=== PATIENT | female | born 1930 | race Caucasian/White ===

== ENCOUNTER 2019-01-15 00:16 | Inpatient (IN) | payer MEDICARE, MEDICAID ==
[~2019-01-15] VITALS: Ht 157.5 cm; Wt 62.6 kg
[2019-01-15] MEDS ORDERED: ASPI81TA31 PO (00:26)
[2019-01-15] MEDS ORDERED: ATOR10TA PO (00:27)
[2019-01-15] MEDS ORDERED: BENZ0.5T43 PO (00:28)
[2019-01-15] MEDS ORDERED: DOCU-141 PO (00:28)
[2019-01-15] MEDS ORDERED: BISA10SU61 RC (00:29)
[2019-01-15] MEDS ORDERED: SITA50TA PO ×2 (00:30→00:32)
[2019-01-15] MEDS ORDERED: LISI40TA4 PO (00:32)
[2019-01-15] MEDS ORDERED: MELA3TAB PO (00:33)
[2019-01-15] MEDS ORDERED: MEMA5TAB15 PO (00:34)
[2019-01-15] MEDS ORDERED: METO25TA6 PO (00:34)
[2019-01-15] MEDS ORDERED: QUET25TA PO (00:35)
[2019-01-15] MEDS ORDERED: QUET50TA PO (00:36)
[2019-01-15] MEDS ORDERED: TRAM50TA2 PO (00:37)
[2019-01-15] MEDS ORDERED: ACET-2154 PO (00:37)
[2019-01-15] MEDS ORDERED: INSU100I19 SQ (00:39)
[2019-01-15] MEDS ORDERED: HYDR-3326 PO (00:41)
[2019-01-15] MEDS ORDERED: NITR0.4T48 SL (00:42)
--- NOTE | 2019-01-15 00:56 | NUR ---
MRSA swab complete and sent to lab. Xrat at bedside. Belongings list complete
[2019-01-15 01:04] LABS: BASOPHILS % (AUTO) 0.4 % (0.0-2.0); EOSINOPHILS # (AUTO) 0.1 K/uL (0.0-0.7); EOSINOPHILS % (AUTO) 1.4 % (0.0-7.0); HEMATOCRIT 35.1 % (31.2-41.9); HEMOGLOBIN 11.5 g/dL (10.9-14.3); LYMPHOCYTES # (AUTO) 2.2 K/uL (20.0-40.0); LYMPHOCYTES % (AUTO) 34.3 % (20.5-51.5); MEAN CORPUSCULAR HGB CONC 33 g/dL (32.3-35.6); MEAN CORPUSCULAR VOLUME 91.9 fL (75.5-95.3); MONOCYTES # (AUTO) 0.4 K/uL (2.0-10.0); MONOCYTES % (AUTO) 6.6 % (0.0-11.0); NEUTROPHILS # (AUTO) 3.7 K/uL (1.8-8.9); NEUTROPHILS % (AUTO) 57.3 % (38.5-71.5); PLATELET COUNT (AUTO) 198 K/uL (179-408); RED BLOOD CELL COUNT(AUTO) 3.81 MIL/uL (3.63-4.92); WHITE BLOOD COUNT (AUTO) 6.5 K/uL (3.8-11.8)
[2019-01-15 01:06] LABS: CARBON DIOXIDE 27 mmol/L (21-32); CHLORIDE 99 mmol/L (98-107); POTASSIUM 4.5 mmol/L (3.5-5.1); UREA NITROGEN, BLOOD 25 mg/dL (7-18)
[2019-01-15 01:08] LABS: GLUCOSE 371 mg/dL (74-106)
[2019-01-15 01:11] LABS: ALANINE AMINOTRANSFERASE 15 U/L (14-59); ALKALINE PHOSPHATASE 154 U/L (50-136); ASPARTATE AMINOTRANSFERASE 10 U/L (15-37); BILIRUBIN,DIRECT 0.1 mg/dL (0.0-0.2); BILIRUBIN,TOTAL 0.2 mg/dL (0.2-1.0); TOTAL PROTEIN, SERUM 7.8 g/dL (6.4-8.2)
[2019-01-15 01:12] LABS: ACETAMINOPHEN < 2.0 ug/mL (10-30)
[2019-01-15] MEDS ORDERED: INSULIN REGULAR, HUMAN 300 UNIT/3 ML VIAL SQ ONE (01:15)
[2019-01-15] MEDS ORDERED: INSULIN REGULAR, HUMAN 300 UNIT/3 ML VIAL ONE (01:15)
[2019-01-15 01:18] LABS: ETHANOL < 3 MG/DL (0-0)
--- NOTE | 2019-01-15 01:37 | NUR ---
Pt. admitted to [facility] , under care of Dr. Gardner/Blane Marcus DAIRY EQUIPMENT INSTALLER. On 515 hold for GD. Report given to Jamel ALEXANDER in [facility] Belongs List completed
[2019-01-15 01:40] LABS: *BILIRUBIN,URIN NEGATIVE (NEGATIVE); *BLOOD, URINE NEGATIVE (NEGATIVE); *CLARITY,URINE CLEAR (CLEAR); *COLOR,URINE YELLOW (YELLOW); *KETONES,URINE NEGATIVE (NEGATIVE); *UROBILINOGEN,URINE 0.2 E.U./dl (NORMAL); LEUKOCYTE ESTERASE ,URINE NEGATIVE (NEGATIVE); NITRITE, URINE NEGATIVE (NEGATIVE); PH,URINE 5.5 (5.0-8.0)
[2019-01-15 01:46] LABS: UGLUCOSE 2+ (NEGATIVE)
[2019-01-15 01:49] LABS: RBC,URINE 0-3 /HPF (0-3)
[2019-01-15 01:50] LABS: BACTERIA,URINE FEW /HPF (NONE SEEN); SQUAMOUS EPITHELIAL CELL,UR FEW /HPF (NONE SEEN); WBC,URINE 20-50 /HPF (0-3); YEAST,URINE MODERATE /HPF (NONE SEEN)
[2019-01-15 01:53] LABS: *AMPHETAMINE, URINE NEGATIVE (NEGATIVE); *BARBITURATE, URINE NEGATIVE (NEGATIVE); *CANNABINOID, URINE NEGATIVE (NEGATIVE); *COCCAINE, URINE NEGATIVE (NEGATIVE); *OPIATE, URINE NEGATIVE (NEGATIVE); *PHENCYCLIDINE SCREEN,URINE NEGATIVE (NEGATIVE)
[2019-01-15] MEDS ORDERED: QUETIAPINE FUMARATE 25 MG TABLET PO PRN (02:45)
[2019-01-15] MEDS ORDERED: ZOLPIDEM 5 MG TABLET PO PRN (02:45)
[2019-01-15] MEDS ORDERED: MAG HYDROX/AL HYDROX/SIMETH 30 ML LIQUID UDC PO PRN (02:45)
[2019-01-15] MEDS ORDERED: MAGNESIUM HYDROXIDE 30 ML LIQUID UDC PO PRN (02:45)
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
[2019-01-15] MEDS ORDERED: NITROGLYCERIN 0.4 MG/TAB BOTTLE SL PRN (05:30)
--- NOTE | 2019-01-15 06:00 | NUR ---
slept 2.45 hours. continues to sleep, no distress noted.
[2019-01-15 07:30] VITALS: BP 112/42
[2019-01-15] MEDS: ASPIRIN 81 MG TAB.CHEW PO SCH (08:49)
[2019-01-15] MEDS: DOCUSATE SODIUM 100 MG CAPSULE PO SCH ×2 (08:49→16:22)
[2019-01-15] MEDS: BENZTROPINE MESYLATE 0.5 MG TABLET PO SCH ×2 (08:49→16:22)
[2019-01-15] MEDS: LISINOPRIL 20 MG TABLET PO SCH (08:51)
[2019-01-15] MEDS ORDERED: Medication Not On Formulary EA (Sitagliptin Phosphate (Januvia) 25 MG) PO SCH (09:00)
[2019-01-15] MEDS ORDERED: INSULIN DETEMIR 300 UNIT/3 ML CARTRIDGE SQ SCH (09:00)
[2019-01-15] MEDS ORDERED: HYDROCODONE/APAP 5-325MG TABLET PO PRN (09:00)
[2019-01-15] MEDS ORDERED: METOPROLOL TARTRATE 25 MG TABLET PO SCH (09:00)
[2019-01-15] MEDS: LINAGLIPTIN 5 MG TABLET PO SCH (11:24)
[2019-01-15] MEDS: INSULIN GLARGINE,HUM 300 UNITS/3 ML CARTRIDGE SQ SCH ×2 (11:30→21:12)
[2019-01-15] MEDS ORDERED: DEXTROSE 50% 50 ML DISP.SYRIN IV PRN (13:00)
--- NOTE | 2019-01-15 15:08 | NUR ---
Gps/Health Analyst- Not initiating to feed self, encouraged to feed self after set up. medication compliant,fluids offered and encouraged, safety reviewed and emphasized.Complaint with routine medications , min. prompting denies dizziness Monitor for s/s of hypo/hyperglycemia. Napping on and off this pm .
[2019-01-15 16:00] VITALS: BP 100/53
[2019-01-15] MEDS: BLOOD SUGAR DIAGNOSTIC 1 EACH STRIP VI SCH ×2 (16:22→20:52)
[2019-01-15] MEDS: ATORVASTATIN 10 MG TABLET PO SCH (16:22)
[2019-01-15] MEDS: OXCARBAZEPINE 150 MG TABLET PO SCH (16:23)
[2019-01-15] MEDS: FLUCONAZOLE 100 MG TABLET PO SCH (16:26)
[2019-01-15] MEDS: INSULIN REGULAR, HUMAN 300 UNIT/3 ML VIAL SQ PRN ×2 (16:31→21:15)
[2019-01-15 20:26] VITALS: BP 111/51
[2019-01-15] MEDS: QUETIAPINE FUMARATE 25 MG TABLET PO SCH (20:53)
[2019-01-15] MEDS ORDERED: MEMANTINE HCL 5 MG TABLET PO SCH (21:00)
[2019-01-15] MEDS: METOPROLOL TARTRATE 25 MG TABLET PO SCH (21:09)
--- NOTE | 2019-01-15 22:30 | NUR ---
received to care, lying in bed, pleasant and calm,upon approach. compliant with medications, snack, and staff direction. as of 2229 she remains asleep. no distress noted. will continue to monitor closely.
--- NOTE | 2019-01-16 06:30 | NUR ---
slept 6.0 hours. asisted with am care, and shower. no distress noted.
[2019-01-16] MEDS: BLOOD SUGAR DIAGNOSTIC 1 EACH STRIP VI SCH ×4 (06:51→20:53)
[2019-01-16 07:30] VITALS: BP 114/48
[2019-01-16] MEDS: QUETIAPINE FUMARATE 25 MG TABLET PO SCH ×2 (08:27→20:53)
[2019-01-16] MEDS: DOCUSATE SODIUM 100 MG CAPSULE PO SCH ×2 (08:28→16:28)
[2019-01-16] MEDS: OXCARBAZEPINE 150 MG TABLET PO SCH ×2 (08:28→16:28)
[2019-01-16] MEDS: LINAGLIPTIN 5 MG TABLET PO SCH (08:28)
[2019-01-16] MEDS: ASPIRIN 81 MG TAB.CHEW PO SCH (08:29)
[2019-01-16] MEDS: FLUCONAZOLE 100 MG TABLET PO SCH (08:29)
[2019-01-16] MEDS: BENZTROPINE MESYLATE 0.5 MG TABLET PO SCH ×2 (08:29→16:28)
[2019-01-16] MEDS: INSULIN GLARGINE,HUM 300 UNITS/3 ML CARTRIDGE SQ SCH ×2 (08:32→20:57)
[2019-01-16] MEDS: LISINOPRIL 20 MG TABLET PO SCH (08:34)
[2019-01-16] MEDS: METOPROLOL TARTRATE 25 MG TABLET PO SCH ×2 (08:34→20:53)
[2019-01-16] MEDS: INSULIN REGULAR, HUMAN 300 UNIT/3 ML VIAL SQ PRN ×2 (12:06→16:38)
--- NOTE | 2019-01-16 14:19 | NUR ---
Initial Discharge Instructions: Pt is currently a resident at [facility] Address: [address], [place] [address] . Pts daughter is requesting to discuss placement prior to discharge possible request for new placement. Daughter Mere Galindo ([phone]).
[2019-01-16 16:00] VITALS: BP 89/48
[2019-01-16] MEDS: ATORVASTATIN 10 MG TABLET PO SCH (17:36)
--- NOTE | 2019-01-16 18:15 | NUR ---
Gps/Homicide Squad Captain- Daughter came in to visit , update on the patient's progress provided. Per daughter she does not want patient to go back to the same facility where she was before.
[2019-01-16 20:20] VITALS: BP 111/59
--- NOTE | 2019-01-16 22:10 | NUR ---
received to care, lying in bed, pleasant and calm,upon approach. compliant with medications, snack, and staff direction. as of 2209, she remains asleep. no distress noted. will continue to monitor closely.
--- NOTE | 2019-01-17 06:00 | NUR ---
slept 6.5 hours. continues to sleep, no distress noted.
[2019-01-17] MEDS: BLOOD SUGAR DIAGNOSTIC 1 EACH STRIP VI SCH ×4 (06:58→21:51)
[2019-01-17 07:30] VITALS: BP 147/49
[2019-01-17] MEDS: BENZTROPINE MESYLATE 0.5 MG TABLET PO SCH ×2 (09:07→17:07)
[2019-01-17] MEDS: DOCUSATE SODIUM 100 MG CAPSULE PO SCH ×2 (09:07→17:07)
[2019-01-17] MEDS: FLUCONAZOLE 100 MG TABLET PO SCH (09:07)
[2019-01-17] MEDS: METOPROLOL TARTRATE 25 MG TABLET PO SCH ×2 (09:07→21:39)
[2019-01-17] MEDS: ASPIRIN 81 MG TAB.CHEW PO SCH (09:07)
[2019-01-17] MEDS: OXCARBAZEPINE 150 MG TABLET PO SCH ×3 (09:08→21:39)
[2019-01-17] MEDS: LINAGLIPTIN 5 MG TABLET PO SCH (09:08)
[2019-01-17] MEDS: QUETIAPINE FUMARATE 25 MG TABLET PO SCH ×2 (09:08→21:38)
[2019-01-17] MEDS: INSULIN GLARGINE,HUM 300 UNITS/3 ML CARTRIDGE SQ SCH ×2 (09:13→21:00)
[2019-01-17] MEDS: INSULIN REGULAR, HUMAN 300 UNIT/3 ML VIAL SQ PRN ×3 (09:17→16:44)
[2019-01-17] MEDS: LISINOPRIL 20 MG TABLET PO SCH (11:24)
[2019-01-17 15:21] VITALS: BP 148/68
[2019-01-17] MEDS: ATORVASTATIN 10 MG TABLET PO SCH (17:07)
--- NOTE | 2019-01-17 21:00 | NUR ---
Lantus 10 units held for decreased blood glucose of 92. Patient is sleeping and not eating. Will continue to monitor
[2019-01-17 21:48] VITALS: BP 120/50
[2019-01-18] MEDS: BLOOD SUGAR DIAGNOSTIC 1 EACH STRIP VI SCH ×4 (06:45→20:52)
[2019-01-18 07:30] VITALS: BP 161/53
[2019-01-18 07:48] LABS: BASOPHILS % (AUTO) 0.4 % (0.0-2.0); EOSINOPHILS # (AUTO) 0.1 K/uL (0.0-0.7); EOSINOPHILS % (AUTO) 2.2 % (0.0-7.0); HEMATOCRIT 35.1 % (31.2-41.9); HEMOGLOBIN 11.6 g/dL (10.9-14.3); LYMPHOCYTES # (AUTO) 2.5 K/uL (20.0-40.0); LYMPHOCYTES % (AUTO) 49.5 % (20.5-51.5); MEAN CORPUSCULAR HEMOGLOBIN 30.5 uug (24.7-32.8); MEAN CORPUSCULAR HGB CONC 33 g/dL (32.3-35.6); MEAN CORPUSCULAR VOLUME 92.2 fL (75.5-95.3); MONOCYTES # (AUTO) 0.4 K/uL (2.0-10.0); MONOCYTES % (AUTO) 7.3 % (0.0-11.0); NEUTROPHILS # (AUTO) 2.1 K/uL (1.8-8.9); NEUTROPHILS % (AUTO) 40.6 % (38.5-71.5); PLATELET COUNT (AUTO) 178 K/uL (179-408); RED BLOOD CELL COUNT(AUTO) 3.81 MIL/uL (3.63-4.92); WHITE BLOOD COUNT (AUTO) 5.1 K/uL (3.8-11.8)
[2019-01-18 08:18] LABS: THYROID STIMULATING HORMONE 3.415 mIU/mL (0.358-3.740)
[2019-01-18 08:22] LABS: ALANINE AMINOTRANSFERASE 14 U/L (14-59); ALKALINE PHOSPHATASE 104 U/L (50-136); ASPARTATE AMINOTRANSFERASE 16 U/L (15-37); CARBON DIOXIDE 26 mmol/L (21-32); CHLORIDE 101 mmol/L (98-107); GLUCOSE 167 mg/dL (74-106); MAGNESIUM 1.9 mg/dL (1.8-2.4); PHOSPHOROUS 3.7 mg/dL (2.5-4.9); POTASSIUM 4.7 mmol/L (3.5-5.1); TOTAL PROTEIN, SERUM 6.4 g/dL (6.4-8.2); UREA NITROGEN, BLOOD 28 mg/dL (7-18)
[2019-01-18] MEDS: DOCUSATE SODIUM 100 MG CAPSULE PO SCH ×2 (08:35→16:22)
[2019-01-18] MEDS: BENZTROPINE MESYLATE 0.5 MG TABLET PO SCH ×2 (08:35→16:22)
[2019-01-18] MEDS: LINAGLIPTIN 5 MG TABLET PO SCH (08:35)
[2019-01-18] MEDS: ASPIRIN 81 MG TAB.CHEW PO SCH (08:36)
[2019-01-18] MEDS: OXCARBAZEPINE 150 MG TABLET PO SCH ×3 (08:36→20:51)
[2019-01-18] MEDS: QUETIAPINE FUMARATE 25 MG TABLET PO SCH ×2 (08:36→20:50)
[2019-01-18] MEDS: METOPROLOL TARTRATE 25 MG TABLET PO SCH ×2 (08:37→20:49)
[2019-01-18] MEDS: INSULIN GLARGINE,HUM 300 UNITS/3 ML CARTRIDGE SQ SCH ×2 (08:39→20:54)
[2019-01-18] MEDS: INSULIN REGULAR, HUMAN 300 UNIT/3 ML VIAL SQ PRN ×4 (08:46→20:58)
[2019-01-18 09:20] LABS: BILIRUBIN,TOTAL 0.2 mg/dL (0.2-1.0)
[2019-01-18] MEDS: LISINOPRIL 20 MG TABLET PO SCH (09:44)
[2019-01-18] MEDS: ATORVASTATIN 10 MG TABLET PO SCH (17:31)
[2019-01-18 20:13] VITALS: BP 129/54
--- NOTE | 2019-01-18 23:42 | NUR ---
RECEIVED PATIENT IN HER ROOM.PLEASANT UPON APPROACH AND COMPLIANT WITH HER MEDS AND ACCU CHECK.BS WAS 207 AND INSULIN COVERAGE PRESCRIBED WAS GIVEN. FREQUENT CHECKS MADE TO HER ROOM FOR SAFETY.WILL CONTINUE TO MONITOR
--- NOTE | 2019-01-19 06:32 | NUR ---
SHE SLEPT OR APPROX.8:30HRS.BLOOD SUGAR CHECK THIS MORNING IS 129.
[2019-01-19] MEDS: BLOOD SUGAR DIAGNOSTIC 1 EACH STRIP VI SCH ×4 (06:41→20:14)
[2019-01-19 07:30] VITALS: BP 153/66
[2019-01-19] MEDS: DOCUSATE SODIUM 100 MG CAPSULE PO SCH ×2 (08:34→16:45)
[2019-01-19] MEDS: OXCARBAZEPINE 150 MG TABLET PO SCH ×3 (08:34→20:10)
[2019-01-19] MEDS: QUETIAPINE FUMARATE 25 MG TABLET PO SCH ×2 (08:34→20:20)
[2019-01-19] MEDS: LINAGLIPTIN 5 MG TABLET PO SCH (08:34)
[2019-01-19] MEDS: BENZTROPINE MESYLATE 0.5 MG TABLET PO SCH ×2 (08:34→16:45)
[2019-01-19] MEDS: ASPIRIN 81 MG TAB.CHEW PO SCH (08:34)
[2019-01-19] MEDS: LISINOPRIL 20 MG TABLET PO SCH (08:35)
[2019-01-19] MEDS: METOPROLOL TARTRATE 25 MG TABLET PO SCH ×2 (08:35→20:12)
[2019-01-19] MEDS: INSULIN GLARGINE,HUM 300 UNITS/3 ML CARTRIDGE SQ SCH ×2 (08:36→20:08)
[2019-01-19] MEDS: OMEGA-3 FATTY ACIDS/FISH OIL CAPSULE PO SCH (11:04)
[2019-01-19] MEDS: INSULIN REGULAR, HUMAN 300 UNIT/3 ML VIAL SQ PRN ×3 (12:19→20:08)
[2019-01-19 15:54] VITALS: BP 145/52
[2019-01-19] MEDS: ATORVASTATIN 10 MG TABLET PO SCH (17:27)
[2019-01-19 20:00] VITALS: BP 157/66
[2019-01-20] MEDS: BLOOD SUGAR DIAGNOSTIC 1 EACH STRIP VI SCH ×4 (06:36→20:35)
[2019-01-20 07:30] VITALS: BP 143/74
[2019-01-20] MEDS: LINAGLIPTIN 5 MG TABLET PO SCH (08:51)
[2019-01-20] MEDS: INSULIN GLARGINE,HUM 300 UNITS/3 ML CARTRIDGE SQ SCH ×2 (08:51→20:38)
[2019-01-20] MEDS: QUETIAPINE FUMARATE 25 MG TABLET PO SCH ×2 (08:52→20:13)
[2019-01-20] MEDS: ASPIRIN 81 MG TAB.CHEW PO SCH (08:52)
[2019-01-20] MEDS: BENZTROPINE MESYLATE 0.5 MG TABLET PO SCH ×2 (08:52→16:45)
[2019-01-20] MEDS: DOCUSATE SODIUM 100 MG CAPSULE PO SCH ×2 (08:52→16:45)
[2019-01-20] MEDS: OMEGA-3 FATTY ACIDS/FISH OIL CAPSULE PO SCH (08:52)
[2019-01-20] MEDS: OXCARBAZEPINE 150 MG TABLET PO SCH ×3 (08:52→20:13)
[2019-01-20] MEDS: LISINOPRIL 20 MG TABLET PO SCH (09:41)
[2019-01-20] MEDS: METOPROLOL TARTRATE 25 MG TABLET PO SCH ×2 (09:41→20:14)
[2019-01-20] MEDS: INSULIN REGULAR, HUMAN 300 UNIT/3 ML VIAL SQ PRN ×2 (11:51→20:37)
[2019-01-20 15:44] VITALS: BP 119/45
--- NOTE | 2019-01-20 16:32 | NUR ---
Discharge planning: derrick worker spoke with patient daughter, Mere [[phone]], who is requesting that patient receive new SNF placement in the [place] or [facility]. derrick worker explained to Mere that patient has no full Medicare SNF days left and only has "Co-SNF" days. Mere was understanding of information. derrick worker explained that for this reason patient may need to return to [facility] [[address] [place] [address]; ]. derrick worker further explained that this investigative writer would reach out to other facilities to see if they would accept patient. Mere is in agreement with plan. derrick worker will follow-up with Mere as needed. derrick worker faxed SNF inquiry to [facility] [[address] [place] [address]; ]. derrick worker awaiting response.
[2019-01-20] MEDS: ATORVASTATIN 10 MG TABLET PO SCH (17:05)
[2019-01-20 20:05] VITALS: BP 150/72
[2019-01-21] MEDS: BLOOD SUGAR DIAGNOSTIC 1 EACH STRIP VI SCH ×4 (06:35→20:29)
[2019-01-21 07:30] VITALS: BP 128/57
[2019-01-21] MEDS: LINAGLIPTIN 5 MG TABLET PO SCH (08:14)
[2019-01-21] MEDS: QUETIAPINE FUMARATE 25 MG TABLET PO SCH ×2 (08:14→20:24)
[2019-01-21] MEDS: OMEGA-3 FATTY ACIDS/FISH OIL CAPSULE PO SCH (08:16)
[2019-01-21] MEDS: DOCUSATE SODIUM 100 MG CAPSULE PO SCH ×2 (08:16→17:50)
[2019-01-21] MEDS: LISINOPRIL 20 MG TABLET PO SCH (08:16)
[2019-01-21] MEDS: BENZTROPINE MESYLATE 0.5 MG TABLET PO SCH ×2 (08:17→17:50)
[2019-01-21] MEDS: ASPIRIN 81 MG TAB.CHEW PO SCH (08:17)
[2019-01-21] MEDS: METOPROLOL TARTRATE 25 MG TABLET PO SCH ×2 (08:17→20:28)
[2019-01-21] MEDS: OXCARBAZEPINE 150 MG TABLET PO SCH ×3 (08:17→20:24)
[2019-01-21] MEDS: INSULIN GLARGINE,HUM 300 UNITS/3 ML CARTRIDGE SQ SCH ×2 (09:38→20:33)
[2019-01-21] MEDS: INSULIN REGULAR, HUMAN 300 UNIT/3 ML VIAL SQ PRN (12:11)
[2019-01-21 16:00] VITALS: BP 133/82
[2019-01-21] MEDS: ATORVASTATIN 10 MG TABLET PO SCH (17:50)
[2019-01-21 19:53] VITALS: BP 135/56
[2019-01-22] MEDS: BLOOD SUGAR DIAGNOSTIC 1 EACH STRIP VI SCH ×4 (06:40→20:10)
[2019-01-22 07:30] VITALS: BP 129/62
[2019-01-22] MEDS: OMEGA-3 FATTY ACIDS/FISH OIL CAPSULE PO SCH (08:13)
[2019-01-22] MEDS: BENZTROPINE MESYLATE 0.5 MG TABLET PO SCH ×2 (08:13→17:53)
[2019-01-22] MEDS: OXCARBAZEPINE 150 MG TABLET PO SCH ×3 (08:13→20:09)
[2019-01-22] MEDS: QUETIAPINE FUMARATE 25 MG TABLET PO SCH ×2 (08:13→20:09)
[2019-01-22] MEDS: LINAGLIPTIN 5 MG TABLET PO SCH (08:13)
[2019-01-22] MEDS: ASPIRIN 81 MG TAB.CHEW PO SCH (08:13)
[2019-01-22] MEDS: DOCUSATE SODIUM 100 MG CAPSULE PO SCH ×2 (08:13→17:53)
[2019-01-22] MEDS: LISINOPRIL 20 MG TABLET PO SCH (08:15)
[2019-01-22] MEDS: METOPROLOL TARTRATE 25 MG TABLET PO SCH ×2 (08:16→20:09)
[2019-01-22] MEDS: INSULIN GLARGINE,HUM 300 UNITS/3 ML CARTRIDGE SQ SCH ×2 (09:10→20:12)
[2019-01-22] MEDS: ACETAMINOPHEN 325 MG TABLET PO PRN (11:53)
[2019-01-22 16:00] VITALS: BP 138/49
[2019-01-22] MEDS: ATORVASTATIN 10 MG TABLET PO SCH (17:53)
[2019-01-22] MEDS: INSULIN REGULAR, HUMAN 300 UNIT/3 ML VIAL SQ PRN (17:56)
[2019-01-22 19:51] VITALS: BP 137/44
[2019-01-23] MEDS: BLOOD SUGAR DIAGNOSTIC 1 EACH STRIP VI SCH ×4 (06:28→20:51)
[2019-01-23 07:30] VITALS: BP 142/61
[2019-01-23] MEDS: LINAGLIPTIN 5 MG TABLET PO SCH (09:30)
[2019-01-23] MEDS: ACETAMINOPHEN 325 MG TABLET PO PRN (09:30)
[2019-01-23] MEDS: LISINOPRIL 20 MG TABLET PO SCH (09:31)
[2019-01-23] MEDS: DOCUSATE SODIUM 100 MG CAPSULE PO SCH ×2 (09:31→17:55)
[2019-01-23] MEDS: BENZTROPINE MESYLATE 0.5 MG TABLET PO SCH ×2 (09:31→17:55)
[2019-01-23] MEDS: ASPIRIN 81 MG TAB.CHEW PO SCH (09:32)
[2019-01-23] MEDS: OMEGA-3 FATTY ACIDS/FISH OIL CAPSULE PO SCH (09:32)
[2019-01-23] MEDS: QUETIAPINE FUMARATE 25 MG TABLET PO SCH ×2 (09:32→20:44)
[2019-01-23] MEDS: METOPROLOL TARTRATE 25 MG TABLET PO SCH ×2 (09:33→20:44)
[2019-01-23] MEDS: OXCARBAZEPINE 150 MG TABLET PO SCH ×3 (09:40→20:44)
[2019-01-23] MEDS: INSULIN GLARGINE,HUM 300 UNITS/3 ML CARTRIDGE SQ SCH ×2 (09:45→20:54)
[2019-01-23] MEDS: INSULIN REGULAR, HUMAN 300 UNIT/3 ML VIAL SQ PRN ×2 (12:41→20:53)
[2019-01-23 16:00] VITALS: BP 128/49
[2019-01-23] MEDS: ATORVASTATIN 10 MG TABLET PO SCH (17:55)
[2019-01-23 22:15] VITALS: BP 148/61
[2019-01-24] MEDS: BLOOD SUGAR DIAGNOSTIC 1 EACH STRIP VI SCH ×4 (06:35→20:00)
[2019-01-24 07:30] VITALS: BP 142/53
[2019-01-24] MEDS: LISINOPRIL 20 MG TABLET PO SCH (09:15)
[2019-01-24] MEDS: OMEGA-3 FATTY ACIDS/FISH OIL CAPSULE PO SCH (09:15)
[2019-01-24] MEDS: BENZTROPINE MESYLATE 0.5 MG TABLET PO SCH ×2 (09:15→18:04)
[2019-01-24] MEDS: OXCARBAZEPINE 150 MG TABLET PO SCH ×3 (09:16→20:02)
[2019-01-24] MEDS: QUETIAPINE FUMARATE 25 MG TABLET PO SCH ×2 (09:16→20:03)
[2019-01-24] MEDS: ASPIRIN 81 MG TAB.CHEW PO SCH (09:16)
[2019-01-24] MEDS: DOCUSATE SODIUM 100 MG CAPSULE PO SCH ×2 (09:16→18:04)
[2019-01-24] MEDS: METOPROLOL TARTRATE 25 MG TABLET PO SCH ×2 (09:16→20:02)
[2019-01-24] MEDS: LINAGLIPTIN 5 MG TABLET PO SCH (09:17)
[2019-01-24] MEDS: INSULIN GLARGINE,HUM 300 UNITS/3 ML CARTRIDGE SQ SCH ×2 (09:32→20:01)
[2019-01-24] MEDS: INSULIN REGULAR, HUMAN 300 UNIT/3 ML VIAL SQ PRN ×3 (12:43→20:02)
[2019-01-24 15:39] VITALS: BP 112/87
[2019-01-24] MEDS: ATORVASTATIN 10 MG TABLET PO SCH (18:05)
[2019-01-24 20:38] VITALS: BP 154/46
[2019-01-24 20:55] VITALS: BP 150/64
[2019-01-24] MEDS ORDERED: ONDANSETRON HCL 4 MG TABLET PO PRN (23:15)
--- NOTE | 2019-01-25 00:15 | NUR ---
At approximately 2310, Pt vomited on the floor beside her bed. Pt reported feeling nauseous, but was "surprised" she vomited. Dr Gutierrez notified and ordered Zofran 4mg PO q 8 hours. Medication administered at 2319 with good effect, Pt now resting comfortably in bed.
[2019-01-25] MEDS: BLOOD SUGAR DIAGNOSTIC 1 EACH STRIP VI SCH ×4 (06:49→20:20)
[2019-01-25 07:30] VITALS: BP 125/44
[2019-01-25] MEDS: OMEGA-3 FATTY ACIDS/FISH OIL CAPSULE PO SCH (08:53)
[2019-01-25] MEDS: BENZTROPINE MESYLATE 0.5 MG TABLET PO SCH ×2 (08:53→16:06)
[2019-01-25] MEDS: ASPIRIN 81 MG TAB.CHEW PO SCH (08:53)
[2019-01-25] MEDS: OXCARBAZEPINE 150 MG TABLET PO SCH ×3 (08:53→20:32)
[2019-01-25] MEDS: QUETIAPINE FUMARATE 25 MG TABLET PO SCH ×2 (08:53→20:32)
[2019-01-25] MEDS: DOCUSATE SODIUM 100 MG CAPSULE PO SCH ×2 (08:53→16:05)
[2019-01-25] MEDS: LISINOPRIL 20 MG TABLET PO SCH (08:54)
[2019-01-25] MEDS: METOPROLOL TARTRATE 25 MG TABLET PO SCH ×2 (08:54→20:33)
[2019-01-25] MEDS: LINAGLIPTIN 5 MG TABLET PO SCH (08:55)
[2019-01-25] MEDS: INSULIN GLARGINE,HUM 300 UNITS/3 ML CARTRIDGE SQ SCH ×2 (09:00→20:22)
[2019-01-25] MEDS: ATORVASTATIN 10 MG TABLET PO SCH (16:06)
[2019-01-25 16:10] VITALS: BP 103/31
[2019-01-25] MEDS: INSULIN REGULAR, HUMAN 300 UNIT/3 ML VIAL SQ PRN (17:12)
[2019-01-25 21:42] VITALS: BP 150/55
[2019-01-26] MEDS: BLOOD SUGAR DIAGNOSTIC 1 EACH STRIP VI SCH ×4 (06:42→20:15)
[2019-01-26 07:30] VITALS: BP 146/49
[2019-01-26] MEDS: BENZTROPINE MESYLATE 0.5 MG TABLET PO SCH ×2 (09:06→16:10)
[2019-01-26] MEDS: OMEGA-3 FATTY ACIDS/FISH OIL CAPSULE PO SCH (09:06)
[2019-01-26] MEDS: ASPIRIN 81 MG TAB.CHEW PO SCH (09:06)
[2019-01-26] MEDS: QUETIAPINE FUMARATE 25 MG TABLET PO SCH ×3 (09:06→21:41)
[2019-01-26] MEDS: LINAGLIPTIN 5 MG TABLET PO SCH (09:06)
[2019-01-26] MEDS: DOCUSATE SODIUM 100 MG CAPSULE PO SCH ×2 (09:07→16:10)
[2019-01-26] MEDS: METOPROLOL TARTRATE 25 MG TABLET PO SCH ×3 (09:07→21:41)
[2019-01-26] MEDS: LISINOPRIL 20 MG TABLET PO SCH (09:07)
[2019-01-26] MEDS: OXCARBAZEPINE 150 MG TABLET PO SCH ×4 (09:07→21:42)
[2019-01-26] MEDS: INSULIN GLARGINE,HUM 300 UNITS/3 ML CARTRIDGE SQ SCH ×2 (09:09→20:51)
--- NOTE | 2019-01-26 09:58 | NUR ---
Firearms Report: store worker completed and submitted a [employer] firearms report for a 5250 GD certification.
[2019-01-26 16:14] VITALS: BP 146/58
[2019-01-26] MEDS: INSULIN REGULAR, HUMAN 300 UNIT/3 ML VIAL SQ PRN (16:50)
[2019-01-26] MEDS: ATORVASTATIN 10 MG TABLET PO SCH (17:37)
[2019-01-26 20:50] VITALS: BP 151/51
[2019-01-26] MEDS: ACETAMINOPHEN 325 MG TABLET PO PRN (21:40)
--- NOTE | 2019-01-26 21:45 | NUR ---
GPS: Noted pt. to be sitting by the edge of her bed crying,anxious and c/o feeling dizzy. Pt.asking to be assisted to the toilet which staff did. Assisted back to bed and was assessed. B/P 174/87, O2 Sat 98%. Denies chest pains. No c/o SOB. Bedtime meds.that were refused by pt.earlier was re-offered to her and taken well. Re-assured at this time. Monitored closely. Fall precautions observed.
--- NOTE | 2019-01-26 22:04 | NUR ---
GPS: Pt.resting comfortably at this time upon rounds. Stated "OK","OK". No further crying episodes noted. Denies pain. Breathing easy and unlabored. Will continue to monitor.
[2019-01-27] MEDS: BLOOD SUGAR DIAGNOSTIC 1 EACH STRIP VI SCH ×2 (06:33→11:29)
[2019-01-27 07:30] VITALS: BP 146/67
[2019-01-27] MEDS: DOCUSATE SODIUM 100 MG CAPSULE PO SCH (08:35)
[2019-01-27] MEDS: QUETIAPINE FUMARATE 25 MG TABLET PO SCH (08:35)
[2019-01-27] MEDS: OMEGA-3 FATTY ACIDS/FISH OIL CAPSULE PO SCH (08:35)
[2019-01-27] MEDS: LINAGLIPTIN 5 MG TABLET PO SCH (08:35)
[2019-01-27] MEDS: BENZTROPINE MESYLATE 0.5 MG TABLET PO SCH (08:35)
[2019-01-27] MEDS: ASPIRIN 81 MG TAB.CHEW PO SCH (08:35)
[2019-01-27] MEDS: OXCARBAZEPINE 150 MG TABLET PO SCH ×2 (08:35→12:38)
[2019-01-27] MEDS: LISINOPRIL 20 MG TABLET PO SCH (08:36)
[2019-01-27] MEDS: INSULIN GLARGINE,HUM 300 UNITS/3 ML CARTRIDGE SQ SCH (08:43)
[2019-01-27 08:53] VITALS: BP 146/61
[2019-01-27] MEDS: METOPROLOL TARTRATE 25 MG TABLET PO SCH (08:53)
--- NOTE | 2019-01-27 09:40 | NUR ---
DC NOTE: Patient will be discharged back to [facility] [[address], [place] [address], [facility] [[email or web address] ] and transportation will be provided by ambulance at 11:00am. Please arrange ambulance transportation for 11:00am. ammonia refrigeration worker has spoken with Elaina, borough coordinator, who states the facility is ready to accept the patient today. Patient is AxOx1-2, able to plan for basic self-care, denies suicidal ideations, and is agreeable with discharge plan. ammonia refrigeration worker has spoken with patient daughter, Mere Galindo [[phone]], who is aware and agreeable with discharge plans. Patient will follow-up with Dr. Gardner (psychiatrist) and Dr. William (arboriculturist) at the facility. Patient has been provided with mental health resources including [facility] Crisis Line [ ], Suzanne Babin [ ], and National Suicide Prevention Lifeline [ ].
--- NOTE | 2019-01-27 13:05 | NUR ---
GPS: Nursing Notes: Discharge Notes: Patient is awake and responding to her name, cooperative with staff, compliant with her medications, following staff directions, language barrier - Jordanian speaking, denies any SI/HI, denies any AH/VH, denies any pain or discomfort, denies any SOB, discharge to [facility] at [address] [place], [place] [id number] , report given to William, RN admissions supervisor, took all her belongings with her, transported to facility via ambulance. dye house vat worker has spoken with patient daughter, Mere Galindo [[phone]], who is aware and agreeable with discharge plans. Patient will follow-up with Dr. Gardner (psychiatrist) and Dr. William (incident response consultant) at the facility. Patient has been provided with mental health resources including [facility] Crisis Line [ ], Suzanne Babin [ ], and National Suicide Prevention Lifeline [ ].
== END 2019-01-27 13:05 | DRG 885 ==
LOC: ER 00:19 → GPS 01:48
PROVIDERS: ADMIT Psychiatry & Neurology Psychiatry; ATTEND Internal Medicine
DX: F31.5 Bipolar disorder, current episode depressed, severe, with psychotic features (principal); I11.0 Hypertensive heart disease with heart failure; N18.9 Chronic kidney disease, unspecified; E11.65 Type 2 diabetes mellitus with hyperglycemia; G11.9 Hereditary ataxia, unspecified; B49 Unspecified mycosis; N39.0 Urinary tract infection, site not specified; F02.81 Dementia in other diseases classified elsewhere, unspecified severity, with behavioral disturbance; E44.0 Moderate protein-calorie malnutrition; D68.59 Other primary thrombophilia; I50.32 Chronic diastolic (congestive) heart failure; I13.0 Hypertensive heart and chronic kidney disease with heart failure and stage 1 through stage 4 chronic kidney disease, or unspecified chronic kidney disease; Z79.82 Long term (current) use of aspirin; Z79.4 Long term (current) use of insulin; K21.9 Gastro-esophageal reflux disease without esophagitis; G20 Parkinson's disease; Z79.899 Other long term (current) drug therapy; Z91.14 Patient's other noncompliance with medication regimen; M19.90 Unspecified osteoarthritis, unspecified site; G30.9 Alzheimer's disease, unspecified; E78.5 Hyperlipidemia, unspecified; E11.22 Type 2 diabetes mellitus with diabetic chronic kidney disease; I25.10 Atherosclerotic heart disease of native coronary artery without angina pectoris
CPT/HCPCS: 36415; 71045; 80307; 83735; 84100; 84443; 85025; 93005; 97110; 97116; 97530; A4663; G0480; G0480-TC; J1815; Q0162